=== PATIENT | female | born 1995 | race Caucasian/White ===

== ENCOUNTER → 2017-02-14 | Outpatient (REF) | payer BC | LOC: M LAB REF 16:23 | PROVIDERS: ATTEND Surgery | DX: N39.0 Urinary tract infection, site not specified (principal) ==

== ENCOUNTER → 2017-07-16 | Outpatient (CLI) | payer BC ==
[2017-07-16 20:57] LABS: ALBUMIN 3.6 GM/DL (3.2-5.2); ALBUMIN/GLOBULIN RATIO 0.97 (1.00-1.93); ALKALINE PHOSPHATASE 50 U/L (45-117); ALT/SGPT 17 U/L (12-78); BILIRUBIN,DIRECT < 0.1 MG/DL (0.0-0.2); BILIRUBIN,TOTAL 0.3 MG/DL (0.2-1.0); TOTAL PROTEIN 7.3 GM/DL (6.4-8.2)
[2017-07-17 08:43] LABS: AST/SGOT 14 U/L (15-37)
== END ==
LOC: M SMT 14:20
PROVIDERS: ATTEND Advanced Practice Midwife
DX: Z34.82 Encounter for supervision of other normal pregnancy, second trimester (principal)

== ENCOUNTER → 2017-07-30 | Outpatient (CLI) | payer BC ==
--- NOTE | 2017-07-31 04:45 | REP ---
Clinical: Anatomical evaluation. Comparison: None . Findings: Examination demonstrates a single live intrauterine in cephalic presentation. motion is identified by technologist. Placenta is noted posteriorly and grade zero without evidence for placenta previa or abruption. Amniotic fluid volume is normal. Cervix measures 3.6 cm in length and appears closed. Nuchal cord appreciated. Gestational age by current measurements 18 weeks 3 days with LUIS 12/28/2017 . FHR equals 139 beats per minute. Estimated weight 261 grams ( 61st percentile). Anatomical assessment demonstrates normal structures including cranium, facial features, lungs, four-chamber heart/ventricular outflow tracts, diaphragm, stomach, cord insertion/three-vessel cord, kidneys/bladder, spine, and extremities. Limited evaluation of the facial features noted along with small bilateral choroid plexus cysts. Impression: Single live intrauterine in cephalic presentation. Anatomical limitations and small cord plexus cysts warrant reevaluation and follow-up. Otherwise complete normal examination. Nuchal cord noted. Signed by Fox Dominique MD 07/31/2017 04:37 A
== END ==
LOC: M SMT 09:00
PROVIDERS: ATTEND Advanced Practice Midwife
DX: Z36.2 Encounter for other antenatal screening follow-up (principal)

== ENCOUNTER → 2017-09-20 | Outpatient (CLI) | payer BC ==
[2017-09-20 18:40] LABS: MEAN CORPUSCULAR HEMOGLOBIN 32.1 pg (27.0-33.0); MEAN CORPUSCULAR HGB CONC 32.8 g/dl (32.0-36.5); MEAN CORPUSCULAR VOLUME 97.7 fl (80.0-96.0); PLATELET COUNT, AUTOMATED 257 10^3/uL (150-450); RED CELL DISTRIBUTION WIDTH 12.7 % (11.5-14.5); WHITE BLOOD COUNT 12.9 10^3/uL (4.0-10.0)
== END ==
LOC: M SMT 13:02
PROVIDERS: ATTEND Advanced Practice Midwife
DX: Z36.89 Encounter for other specified antenatal screening (principal); Z3A.00 Weeks of gestation of pregnancy not specified

== ENCOUNTER → 2017-12-05 | Outpatient (REF) | payer BC | LOC: M LAB REF 12:47 | DX: Z34.83 Encounter for supervision of other normal pregnancy, third trimester (principal) | CPT/HCPCS: 87186 ==

== ENCOUNTER 2018-01-02 16:36 | Inpatient (IN) | payer BC ==
[2018-01-02] MEDS: miSOPROStol 50 MCG 1/2 TAB (S0191) PO (17:52)
[2018-01-02 18:01] LABS: HEMATOCRIT 33.9 % (36.0-47.0); MEAN CORPUSCULAR HEMOGLOBIN 28.4 pg (27.0-33.0); MEAN CORPUSCULAR HGB CONC 32.4 g/dl (32.0-36.5); MEAN CORPUSCULAR VOLUME 87.4 fl (80.0-96.0); PLATELET COUNT, AUTOMATED 249 10^3/uL (150-450); RED BLOOD COUNT 3.88 10^6/uL (4.00-5.40); RED CELL DISTRIBUTION WIDTH 13.6 % (11.5-14.5); WHITE BLOOD COUNT 12.4 10^3/uL (4.0-10.0)
[2018-01-02] MEDS: LR 1,000 ML IV (22:04)
[2018-01-02] MEDS: OXYTOCIN DRIP 30 UNITS in APPROPRIATE DILUENT 1 EA IV (22:05)
[2018-01-02] MEDS: PENICILLIN G POTASSIUM IV 5 MU in D5W MINI-BAG PLUS 100 ML IV (22:05)
[2018-01-03] MEDS: PENICILLIN G POTASSIUM IV 2.5 MU in APPROPRIATE DILUENT 1 EA IV (02:42)
[2018-01-03] MEDS: PROMETHAZINE INJ 25 MG/ML VIAL (J2550) IV (03:50)
[2018-01-03] MEDS: OXYTOCIN DRIP 30 UNITS in APPROPRIATE DILUENT 1 EA IV (06:41)
[2018-01-03] MEDS: LIDOCAINE 1% MDV 20ML VIAL INFIL (06:45)
[2018-01-03] MEDS ORDERED: DIBUCAINE 1% OINTMENT 30GM TOP (06:45)
[2018-01-03] MEDS ORDERED: ANUSOL HC CREAM 30GM TOP (06:45)
[2018-01-03] MEDS ORDERED: METHYLERGONOVINE MALEATE 0.2 MG TAB PO (06:45)
[2018-01-03] MEDS ORDERED: DOCUSATE SODIUM 100 MG CAP PO (06:45)
[2018-01-03] MEDS: IBUPROFEN 800 MG TAB PO ×2 (08:38→16:53)
[2018-01-03] MEDS: PRENATAL VITAMINS CHEWABLE TABLET PO (09:00)
[2018-01-03 09:22] LABS: HBSAG L&D NEGATIVE (NEGATIVE)
[2018-01-03] MEDS: ACETAMINOPHEN 500 MG TAB PO ×2 (13:29→20:15)
[2018-01-04] MEDS: RHOGAM 300 MCG (1500 IU) INJ (J2790) IM (06:55)
[2018-01-04] MEDS: MEASLES,MUMPS,RUBELLA VACCINE INJ (MMR-II) (90707) SC (07:03)
[2018-01-04] MEDS: PRENATAL VITAMINS CHEWABLE TABLET PO (07:35)
[2018-01-04] MEDS: IBUPROFEN 800 MG TAB PO ×2 (08:21→19:30)
[2018-01-04] MEDS: ACETAMINOPHEN 500 MG TAB PO (14:04)
== END 2018-01-05 11:30 | disposition home or self-care (01) | DRG 541 ==
LOC: M LDI 16:36 → M OBS 01-03 09:44
PROVIDERS: Advanced Practice Midwife
PROC: 3E0DXGC Introduction of Other Therapeutic Substance into Mouth and Pharynx, External Approach (ICD-10-PCS; 2018-01-02)
PROC: 10E0XZZ Delivery of Products of Conception, External Approach (ICD-10-PCS; principal; 2018-01-03)
PROC: 10D17Z9 Manual Extraction of Products of Conception, Retained, Via Natural or Artificial Opening (ICD-10-PCS; 2018-01-03)
PROC: 0HQ9XZZ Repair Perineum Skin, External Approach (ICD-10-PCS; 2018-01-03)
DX: O48.0 Post-term pregnancy (principal); O70.0 First degree perineal laceration during delivery; Z37.0 Single live birth; Z3A.40 40 weeks gestation of pregnancy; O73.1 Retained portions of placenta and membranes, without hemorrhage

== ENCOUNTER → 2019-05-13 | Outpatient (REF) | payer BC ==
[~2019-05-13] MED LIST: IBUP-1114 PO; MAPA500T2 PO; PRENTAB9 PO; TUMS500C PO
== END ==
LOC: M LAB REF 11:53
PROVIDERS: ATTEND Advanced Practice Midwife
DX: Z12.4 Encounter for screening for malignant neoplasm of cervix (principal)

== ENCOUNTER → 2019-05-13 | Outpatient (CLI) | payer BC | LOC: M SMT 09:51 | PROVIDERS: ATTEND Advanced Practice Midwife | DX: R63.4 Abnormal weight loss (principal) ==

== ENCOUNTER 2019-07-07 09:07 | Emergency (ER) | payer BC ==
[~2019-07-07] VITALS: Ht 170.2 cm; Wt 63.7 kg
--- NOTE | 2019-07-07 10:26 | REP ---
First trimester obstetric sonography: History: Vaginal bleeding. 6 weeks 2 days by dates. Findings: Transabdominal and transvaginal scanning are performed. Uterine dimensions are 8.8 x 4.3 x 5.3 cm. Uterine size is felt to be normal. The endometrium is empty. No intrauterine gestation is seen. Endometrial echo is 0.9 cm in thickness. Right ovary measures 3.1 x 2.8 x 3.8 cm. There is a 1.5 cm hyperechoic complex area in the right ovary. Doppler flow is normal and the right ovary with resistive index of 0.42. The overall dimensions of the left ovary are 3.8 x 2.1 x 2.1 cm. There is a cyst in the left ovary measuring 1.7 cm in greatest diameter. Doppler flow was observed in the left ovary with resistive index 0.53. There is a sliver of cul-de-sac fluid. Impression: No morphologic abnormality noted. Normal-sized empty uterus. A sliver of fluid in the cul-de-sac. Nonspecific sonographic findings. Electronically Signed by Nader Garcia MD 07/07/2019 10:31 A
[2019-07-07 10:44] LABS: BASO # 0.1 10^3/uL (0.0-0.2); BASO % 0.7 % (0.0-1.0); EOS # 0.1 10^3/uL (0.0-0.5); EOS % 0.8 % (0.0-3.0); HEMATOCRIT 38.1 % (36.0-47.0); HEMOGLOBIN 12.8 g/dl (12.0-15.5); LYMPH # 1.4 10^3/uL (1.5-5.0); LYMPH % 14.6 % (24.0-44.0); MEAN CORPUSCULAR HEMOGLOBIN 32.8 pg (27.0-33.0); MEAN CORPUSCULAR HGB CONC 33.6 g/dl (32.0-36.5); MEAN CORPUSCULAR VOLUME 97.7 fl (80.0-96.0); MONO # 0.7 10^3/uL (0.0-0.8); MONO % 7.4 % (0.0-5.0); NEUTROPHILS # 7.5 10^3/uL (1.5-8.5); NEUTROPHILS % 76.1 % (36.0-66.0); PLATELET COUNT, AUTOMATED 243 10^3/uL (150-450); WHITE BLOOD COUNT 9.8 10^3/uL (4.0-10.0)
[2019-07-07 11:58] VITALS: BP 129/83
[2019-07-07 12:09] LABS: CHLAMYDIA DNA AMPLIFICATION NEGATIVE (NEGATIVE); GC DNA AMPLIFICATION NEGATIVE (NEGATIVE)
== END 2019-07-07 12:08 | disposition home or self-care (01) ==
LOC: M ED 09:07
DX: O26.851 Spotting complicating pregnancy, first trimester (principal); R10.2 Pelvic and perineal pain; Z3A.01 Less than 8 weeks gestation of pregnancy; Z88.2 Allergy status to sulfonamides; Z88.8 Allergy status to other drugs, medicaments and biological substances

== ENCOUNTER → 2019-07-09 | Outpatient (CLI) | payer BC | LOC: M SMT 09:10 | PROVIDERS: ATTEND Physician Assistant | DX: O26.851 Spotting complicating pregnancy, first trimester (principal) ==

== ENCOUNTER → 2019-07-15 | Outpatient (CLI) | payer BC | LOC: M SMT 12:03 | PROVIDERS: ATTEND Advanced Practice Midwife | DX: O03.4 Incomplete spontaneous abortion without complication (principal) ==

== ENCOUNTER → 2019-08-19 | Outpatient (CLI) | payer BC ==
[2019-08-19 17:55] LABS: BASO # 0.1 10^3/uL (0.0-0.2); BASO % 0.6 % (0.0-1.0); EOS # 0.2 10^3/uL (0.0-0.5); EOS % 1.6 % (0.0-3.0); HEMATOCRIT 38.2 % (36.0-47.0); HEMOGLOBIN 12.3 g/dl (12.0-15.5); LYMPH # 1.8 10^3/uL (1.5-5.0); LYMPH % 17.4 % (24.0-44.0); MEAN CORPUSCULAR HEMOGLOBIN 31.6 pg (27.0-33.0); MEAN CORPUSCULAR HGB CONC 32.2 g/dl (32.0-36.5); MEAN CORPUSCULAR VOLUME 98.2 fl (80.0-96.0); MONO # 0.8 10^3/uL (0.0-0.8); MONO % 8.1 % (0.0-5.0); NEUTROPHILS # 7.5 10^3/uL (1.5-8.5); NEUTROPHILS % 71.7 % (36.0-66.0); PLATELET COUNT, AUTOMATED 252 10^3/uL (150-450); RED BLOOD COUNT 3.89 10^6/uL (4.00-5.40); WHITE BLOOD COUNT 10.4 10^3/uL (4.0-10.0)
[2019-08-20 09:24] LABS: HEPATITIS C VIRUS ABY INDEX 0.1 INDEX (<0.8); HIV 1&2 SCREEN CENTAUR NEGATIVE (NEGATIVE); RUBELLA IgG QUALITATIVE IMMUNE (IMMUNE)
== END ==
LOC: M SMT 11:42
PROVIDERS: ATTEND Advanced Practice Midwife
DX: Z34.81 Encounter for supervision of other normal pregnancy, first trimester (principal); Z3A.00 Weeks of gestation of pregnancy not specified

== ENCOUNTER → 2019-09-02 | Outpatient (REF) | payer BC | LOC: M LAB REF 13:03 | PROVIDERS: ATTEND Advanced Practice Midwife | DX: Z34.81 Encounter for supervision of other normal pregnancy, first trimester (principal); Z3A.00 Weeks of gestation of pregnancy not specified ==

== ENCOUNTER → 2019-11-06 | Outpatient (REF) | payer BC ==
[2019-11-06 15:48] LABS: CHLAMYDIA DNA AMPLIFICATION NEGATIVE (NEGATIVE); GC DNA AMPLIFICATION NEGATIVE (NEGATIVE)
== END ==
LOC: M SFHCWAGY 12:59
PROVIDERS: ATTEND Advanced Practice Midwife
DX: Z34.82 Encounter for supervision of other normal pregnancy, second trimester (principal)

== ENCOUNTER → 2019-11-13 | Outpatient (CLI) | payer BC ==
--- NOTE | 2019-11-14 04:13 | REP ---
Clinical: Anatomical evaluation. Comparison: None . Findings: Examination demonstrates a single live intrauterine in variable presentation. motion is identified by technologist. Placenta is noted anterior and grade zero without evidence for placenta previa or abruption. Amniotic fluid volume is normal. Cervix measures 3.3 cm in length and appears closed. Nuchal cord cannot be excluded Gestational age by LMP 18 weeks 6 days with LUSI 04/09/2020 . Gestational age by current measurements 19 weeks 0 day with LUIS 04/08/2020 . FHR equals 141 beats per minute. BPD 4.3 cm 18 weeks 6 days HC 15.6 cm 18 weeks 4 days AC 13.8 cm 19 weeks 2 days FL 2.9 cm 18 weeks 5 days HL 2.9 cm 19 weeks 2 days HC/AC ratio 1.13 Estimated weight 267 grams ( 49th percentile). Anatomical assessment demonstrates normal structures including cranium, choroid plexus, cavum, cerebellum/posterior fossa, facial features, lungs, four-chamber heart/ventricular outflow tracts, diaphragm, stomach, cord insertion/three-vessel cord, kidneys/bladder, spine, and extremities. Impression: 1. Single live intrauterine in variable presentation demonstrating appropriate interval growth. No gross abnormalities are identified. 2. Nuchal cord cannot be excluded. Electronically Signed by Fox Dominique MD 11/14/2019 04:04 A
== END ==
LOC: M RAD 08:05
PROVIDERS: ATTEND Advanced Practice Midwife
DX: Z34.82 Encounter for supervision of other normal pregnancy, second trimester (principal); Z3A.19 19 weeks gestation of pregnancy

== ENCOUNTER → 2020-02-10 | Outpatient (REF) | payer BC ==
[2020-02-10 17:28] LABS: HEMATOCRIT 33.8 % (36.0-47.0); HEMOGLOBIN 11.1 g/dl (12.0-15.5); MEAN CORPUSCULAR HEMOGLOBIN 31.7 pg (27.0-33.0); MEAN CORPUSCULAR HGB CONC 32.8 g/dl (32.0-36.5); MEAN CORPUSCULAR VOLUME 96.6 fl (80.0-96.0); PLATELET COUNT, AUTOMATED 207 10^3/uL (150-450); WHITE BLOOD COUNT 10.2 10^3/uL (4.0-10.0)
== END ==
LOC: M PLALAB 13:36
PROVIDERS: ATTEND Advanced Practice Midwife
DX: Z34.82 Encounter for supervision of other normal pregnancy, second trimester (principal)

== ENCOUNTER → 2020-03-10 | Outpatient (REF) | payer BC | LOC: M SFHCWAGY 17:26 | PROVIDERS: ATTEND Advanced Practice Midwife | DX: Z34.93 Encounter for supervision of normal pregnancy, unspecified, third trimester (principal) ==

== ENCOUNTER → 2020-03-17 | Outpatient (REF) | payer BC | LOC: M PLALAB 11:36 | PROVIDERS: ATTEND Advanced Practice Midwife | DX: Z34.93 Encounter for supervision of normal pregnancy, unspecified, third trimester (principal) ==

== ENCOUNTER 2020-04-20 07:32 | Inpatient (IN) | payer BC ==
[~2020-04-20] VITALS: Ht 170.2 cm; Wt 74.6 kg
[2020-04-20] VITALS (27 sets, daily range): BP systolic 106–136; BP diastolic 53–82
[2020-04-20] MEDS ORDERED: PRIL20TA2 PO (08:00)
[2020-04-20] MEDS ORDERED: miSOPROStol 50 MCG 1/2 TAB (S0191) PO SCH (08:30)
[2020-04-20 09:24] LABS: HEMATOCRIT 34.8 % (36.0-47.0); HEMOGLOBIN 11.2 g/dl (12.0-15.5); MEAN CORPUSCULAR HEMOGLOBIN 28.7 pg (27.0-33.0); MEAN CORPUSCULAR HGB CONC 32.2 g/dl (32.0-36.5); MEAN CORPUSCULAR VOLUME 89.2 fl (80.0-96.0); PLATELET COUNT, AUTOMATED 232 10^3/uL (150-450); WHITE BLOOD COUNT 9.2 10^3/uL (4.0-10.0)
[2020-04-20] MEDS ORDERED: LR 1,000 ML IV SCH (12:44)
[2020-04-20] MEDS ORDERED: OXYTOCIN DRIP 30 UNITS in IV 1 EA IV SCH ×2 (12:45→23:12)
[2020-04-20] MEDS: OMEPRAZOLE 20 MG CAP PO SCH (15:29)
--- NOTE | 2020-04-20 18:50 | HPE ---
DATE OF ADMISSION: 04/20/2020 Marcia is a 24-year-old 3, para 1-0-1-1 at 41-4/7 weeks gestation, EDC of 04/09/2020 based on last menstrual period and confirmed by first trimester ultrasound, presents to labor and delivery today for induction of labor due to post-term . She denies any painful, regular contractions, vaginal bleeding or leakage of fluid. The fetus has been active. care was initiated at [facility] in the first trimester. course uncomplicated. OBSTETRICAL HISTORY: 1. 12/2017, 41 weeks gestation, 7 pounds 11 ounces female, spontaneous vaginal delivery following induction of labor. 2. June 2019, spontaneous miscarriage. OBSTETRIC LABORATORIES: O+, antibody screen negative, syphilis negative, gonorrhea and chlamydia negative. Hepatitis B surface antigen negative. Hepatitis C antibody nonreactive. HIV nonreactive, rubella immune. Gestational diabetic screening normal at 95. GBS negative and urine culture no growth. PAST MEDICAL HISTORY: Negative. SURGERIES: None. FAMILY HISTORY: Prader-Willi syndrome. SOCIAL HISTORY: The patient is . Her is at bedside and supportive. She is a nonsmoker. Denies alcohol and drug use. No history of sexually transmitted infections and denies history of abuse; physical, sexual and emotional. ALLERGIES: ZOFRAN, which causes anaphylaxis. BACTRIM, vomiting. MEDICATIONS: - vitamin - omeprazole 20 mg daily OBJECTIVE: Upon arrival, temperature 97.9, pulse 88, respirations 16, blood pressure is 112/59. She is alert and oriented times three, smiling and talkative. No distress. heart rate 140 with moderate variability, positive accelerations, negative decelerations. No pattern of regular contractions. Her abdomen is gravid, cephalic presentation. Estimated weight 7-1/2 pounds. Sterile vaginal exam: 2 cm dilated 50% effaced, -2 station, posterior and soft. No show with the exam. ASSESSMENT: Intrauterine at 41-4/7 weeks. heart rate category 1. PLAN: Admit the patient to labor and delivery. One dose of misoprostol for cervical ripening. Routine labs. Out of bed ad shon. Regular diet at this time. Routine laboratories. Likely will start Pitocin for labor induction and will consider assisted rupture of membranes for labor augmentation once patient is uncomfortable. The patient plans on coping with her labor pathologically. Risks, benefits and alternatives have been reviewed. The patient and her 's questions have been answered. She has been verbally consented for emergency surgery and blood products if they are necessary. I do anticipate cervical ripening, labor and a spontaneous vaginal delivery.
[2020-04-20] MEDS ORDERED: IBUPROFEN 600MG TAB PO PRN (23:15)
[2020-04-20] MEDS ORDERED: DIBUCAINE 1% OINTMENT 30GM TOP PRN (23:15)
[2020-04-20] MEDS ORDERED: MEASLES,MUMPS,RUBELLA VACCINE INJ (MMR-II) (90707) SC SCH (23:15)
[2020-04-20] MEDS ORDERED: DOCUSATE SODIUM 100 MG CAP PO PRN (23:15)
[2020-04-20] MEDS ORDERED: RHOGAM 300 MCG (1500 IU) INJ (J2790) IM SCH (23:15)
[2020-04-20] MEDS ORDERED: ACETAMINOPHEN TAB 650MG DOSE (2X325MG) PO PRN (23:15)
[2020-04-20] MEDS ORDERED: METHYLERGONOVINE MALEATE 0.2 MG TAB PO PRN (23:15)
[2020-04-21] VITALS: BP 113/53
[2020-04-21 02:02] VITALS: BP 113/72
[2020-04-21 05:28] VITALS: BP 102/59
[2020-04-21] MEDS: IBUPROFEN 800 MG TAB PO PRN ×2 (06:55→18:04)
[2020-04-21] MEDS: OMEPRAZOLE 20 MG CAP PO SCH (08:07)
[2020-04-21] MEDS: PRENATAL VITAMINS CHEWABLE TABLET PO SCH (08:07)
--- NOTE | 2020-04-21 09:26 | DN ---
DATE OF DELIVERY: 04/20/2020 Fay is a 24-year-old, 3, para 2-0-1-2 now, who was admitted to labor and delivery for induction of labor due to post-term . One dose of misoprostol and IV Pitocin was used and labor did ensue. She coped with her labor physiologically. She reached complete dilation at 2238. She pushed to a normal spontaneous vaginal delivery of a live male in left occiput anterior (TERESITA) position with restitution to right occiput transverse (ROT) position at 2246. There was a nuchal cord x1, loose, reduced manually at the time of delivery. The male shoulders delivered spontaneously and corpus immediately followed. He was placed on the maternal abdomen crying and active. The cord was clamped times two once pulsations ceased and cut by the father of the baby under my direction. Spontaneous placenta by Styles mechanism with three-vessel cord was at 2253. Uterine hemostasis achieved with IV Pitocin rapid infusion and uterine fundal massage. Estimated blood loss 200 mL. Perineum and vagina inspected and noted to be intact. [place] male weighed 8 pounds 8 ounces, 3850 grams, Apgars 9 and 9. The family have named their son, Osvaldo Barry. Mom is going to breastfeed her son. At the close of delivery, lap counts, needle counts and instrument counts were correct and verified.
[2020-04-21] MEDS: ACETAMINOPHEN 500 MG TAB PO PRN ×2 (12:36→23:49)
[2020-04-21 18:00] VITALS: BP 134/57
[2020-04-22 05:40] VITALS: BP 115/55
[2020-04-22] MEDS: PRENATAL VITAMINS CHEWABLE TABLET PO SCH (07:17)
[2020-04-22] MEDS: OMEPRAZOLE 20 MG CAP PO SCH (07:17)
== END 2020-04-22 11:20 | disposition home or self-care (01) | DRG 560 ==
LOC: M LDI 07:32 → M OBS 04-21 01:58
PROVIDERS: ADMIT Advanced Practice Midwife; ATTEND Advanced Practice Midwife
PROC: 10E0XZZ Delivery of Products of Conception, External Approach (ICD-10-PCS; principal; 2020-04-20)
PROC: 3E033VJ Introduction of Other Hormone into Peripheral Vein, Percutaneous Approach (ICD-10-PCS; 2020-04-20)
PROC: 3E0DXGC Introduction of Other Therapeutic Substance into Mouth and Pharynx, External Approach (ICD-10-PCS; 2020-04-20)
DX: O48.0 Post-term pregnancy (principal); Z37.0 Single live birth; Z3A.41 41 weeks gestation of pregnancy; O69.81X0 Labor and delivery complicated by cord around neck, without compression, not applicable or unspecified

== ENCOUNTER 2021-01-13 12:53 | Emergency (ER) | payer BC ==
[~2021-01-13] VITALS: Ht 170.2 cm; Wt 59.1 kg
[~2021-01-13 12:53] MED LIST changes: +PRIL20TA2 PO
--- NOTE | 2021-01-13 13:39 | REP ---
INDICATION: speech difficulty - 9 weeks . COMPARISON: None. TECHNIQUE: CT BRAIN PERFORMED IN THE AXIAL PLANE. CORONAL RECONSTRUCTION IMAGES ARE PERFORMED. FINDINGS: THE VENTRICLES ARE NORMAL IN SIZE AND POSITION. THERE IS NO MIDLINE SHIFT OR MASS EFFECT. THE BASAL GANGLIA ARE SYMMETRIC AND NORMAL. JOHNSON-WHITE DIFFERENTIATION IS WELL MAINTAINED. THERE IS NO ACUTE INTRACRANIAL HEMORRHAGE OR EXTRA-AXIAL FLUID COLLECTION. POSTERIOR FOSSA IS UNREMARKABLE. THE BASAL CISTERNS ARE INTACT. BONE WINDOW EXAMINATION IS UNREMARKABLE. VISUALIZED MASTOID AIR CELLS AND PARANASAL SINUSES ARE CLEAR. IMPRESSION: NEGATIVE NONCONTRAST CT BRAIN. <Electronically signed by Neftali Colvin > 01/13/21 [id number]
[2021-01-13 13:43] LABS: BASO # 0.1 10^3/uL (0.0-0.2); BASO % 0.7 % (0.0-1.0); EOS # 0.2 10^3/uL (0.0-0.5); EOS % 1.5 % (0.0-3.0); HEMATOCRIT 36.7 % (36.0-47.0); LYMPH # 1.5 10^3/uL (1.5-5.0); LYMPH % 14.8 % (24.0-44.0); MEAN CORPUSCULAR HGB CONC 32.7 g/dl (32.0-36.5); MEAN CORPUSCULAR VOLUME 97.9 fl (80.0-96.0); MONO # 0.9 10^3/uL (0.0-0.8); MONO % 8.2 % (2.0-8.0); NEUTROPHILS # 7.7 10^3/uL (1.5-8.5); NEUTROPHILS % 74.2 % (36.0-66.0); PLATELET COUNT, AUTOMATED 238 10^3/uL (150-450); RED BLOOD COUNT 3.75 10^6/uL (4.00-5.40); WHITE BLOOD COUNT 10.4 10^3/uL (4.0-10.0)
[2021-01-13 14:09] LABS: CK-MB VALUE MASS < 1.0 NG/ML (<3.6); CPK CREATINE PHOSPHOKINASE 84 U/L (26-192); MB/CK RELATIVE INDEX 1.19 (< OR =4); TROPONIN I < 0.02 NG/ML (< 0.10)
--- NOTE | 2021-01-13 15:02 | REPVR ---
PROCEDURE INFORMATION: Exam: MR Angiogram Head Without Contrast, Arteries Exam date and time: 01/13/2021 2:56 PM Age: 25 years old Clinical indication: Speech disturbance; Patient HX: PT 9wks , onset aphasia, PT states facial numbness bilateral hand numbness TECHNIQUE: Imaging protocol: MR angiogram head without contrast. Exam focused on the arteries. 3D rendering (Not supervised by radiologist): MIP and/or 3D reconstructed images were created by the technologist. COMPARISON: CT Head without contrast 01/13/2021 1:23 PM FINDINGS: ANTERIOR CIRCULATION: Right internal carotid artery: Intracranial segment is patent with no significant stenosis. No aneurysm. Right middle cerebral artery: No occlusion or significant stenosis. No aneurysm. Right anterior cerebral artery: No occlusion or significant stenosis. No aneurysm. Left internal carotid artery: Intracranial segment is patent with no significant stenosis. No aneurysm. Left middle cerebral artery: No occlusion or significant stenosis. No aneurysm. Left anterior cerebral artery: No occlusion or significant stenosis. No aneurysm. POSTERIOR CIRCULATION: Right vertebral artery: No occlusion or significant stenosis. No aneurysm. Left vertebral artery: No occlusion or significant stenosis. No aneurysm. Basilar artery: No occlusion or significant stenosis. No aneurysm. Right posterior cerebral artery: No occlusion or significant stenosis. No aneurysm. Left posterior cerebral artery: No occlusion or significant stenosis. No aneurysm. IMPRESSION: No stenosis.No occlusion. No aneurysm. Electronically signed by: Johnnie Rizvi On 01/13/2021 15:02:16 PM
--- NOTE | 2021-01-13 15:04 | REPVR ---
PROCEDURE INFORMATION: Exam: MR Head Without Contrast Exam date and time: 01/13/2021 2:56 PM Age: 25 years old Clinical indication: Speech disturbance; Aphasia; Patient HX: 9wks , apashia, PT states facial numbness, monica hand weakness TECHNIQUE: Imaging protocol: MR of the head without contrast. COMPARISON: CT Head without contrast 01/13/2021 1:23 PM FINDINGS: Brain: Examination of the brain demonstrates normal morphology and signal intensity.No acute infarction, masses, midline shift or acute hemorrhage is seen. No acute intracranial abnormality is identified.There is no abnormal diffusion weighted signal intensity to suggest an acute ischemic event.The cortical finnegan / white matter interfaces are preserved throughout the brain.Intracranial flow voids are well maintained. Cerebral ventricles: The ventricular system is not dilated and is appropriate for the patient's age. Bones/joints: Unremarkable. Paranasal sinuses: Normal as visualized. No acute sinusitis. Mastoid air cells: Normal as visualized. No mastoid effusion. Orbital cavity: Unremarkable. Soft tissues: Unremarkable. IMPRESSION: 1. No acute infarction, masses or hemorrhage is seen. No acute intracranial abnormality is identified. 2. There has been no adverse interval change since the previous study. Electronically signed by: Johnnie Rizvi On 01/13/2021 15:04:57 PM
[2021-01-13] MEDS ORDERED: diphenhydrAMINE 50MG/ML VIAL (J1200) IV STA (15:12)
[2021-01-13 15:14] LABS: RSV AMPLIFICATION NEGATIVE (NEGATIVE)
[2021-01-13] MEDS ORDERED: NS 1,000 ML IV ONE (15:15)
[2021-01-13] MEDS ORDERED: METOCLOPRAMIDE INJ 10MG/2ML VIAL (J2765 PER 1) IV ONE (15:15)
[2021-01-13] MEDS ORDERED: PROMETHAZINE INJ 25 MG/ML VIAL (J2550) IV ONE (16:25)
[2021-01-13] MEDS ORDERED: ACETAMINOPHEN TAB 650MG DOSE (2X325MG) PO ONE (17:35)
[2021-01-13 18:10] VITALS: BP 122/60
--- NOTE | 2021-01-14 06:35 | ECGEPIP ---
[facility] - ED Test Date: 2021-01-13 Pat Name: SAUNDRA ROSE Department: Room: - Gender: Female Vp Data: KYARA : 1995 Requested By: Caroline De Paz Order Number: [id number] Reading MD: Berta Patel Measurements Intervals [place] Rate: 79 P: 74 SD: 146 QRS: 88 QRSD: 90 T: 62 QT: 394 QTc: 451 Interpretive Statements Normal sinus rhythm with sinus arrhythmia Nonspecific ST T wave changes No prior ECG for comparison Electronically Signed on 01-14-2021 6:35:02 EDT by Berta Patel
== END 2021-01-13 18:16 | disposition home or self-care (01) ==
LOC: M ED 12:53
DX: O99.351 Diseases of the nervous system complicating pregnancy, first trimester (principal); G43.809 Other migraine, not intractable, without status migrainosus; Z88.2 Allergy status to sulfonamides; Z88.8 Allergy status to other drugs, medicaments and biological substances; Z79.899 Other long term (current) drug therapy
CPT/HCPCS: 70450; 70544; 70551; 80047; 82550; 82553; 84484; 85025; 85730; 87631; 93005; 93041; 94760; 96361; 96374; 96375; 99284; J1200; J2765

== ENCOUNTER → 2021-01-21 | Outpatient (REF) | payer BC ==
[2021-01-21 13:36] LABS: HEMATOCRIT 38.1 % (36.0-47.0); HEMOGLOBIN 12.1 g/dl (12.0-15.5); MEAN CORPUSCULAR HEMOGLOBIN 31.2 pg (27.0-33.0); MEAN CORPUSCULAR HGB CONC 31.8 g/dl (32.0-36.5); MEAN CORPUSCULAR VOLUME 98.2 fl (80.0-96.0); PLATELET COUNT, AUTOMATED 264 10^3/uL (150-450); RED BLOOD COUNT 3.88 10^6/uL (4.00-5.40); WHITE BLOOD COUNT 9.2 10^3/uL (4.0-10.0)
[2021-01-21 14:50] LABS: HEPATITIS C VIRUS ABY INDEX 0.1 INDEX (<0.8); HIV 1&2 SCREEN CENTAUR NEGATIVE (NEGATIVE)
[2021-01-21 17:12] LABS: CHLAMYDIA DNA AMPLIFICATION NEGATIVE (NEGATIVE); GC DNA AMPLIFICATION NEGATIVE (NEGATIVE)
== END ==
LOC: M PLALAB 10:32
PROVIDERS: ATTEND Advanced Practice Midwife
DX: Z34.91 Encounter for supervision of normal pregnancy, unspecified, first trimester (principal)

== ENCOUNTER → 2021-03-28 | Outpatient (CLI) | payer BC ==
--- NOTE | 2021-03-28 11:50 | REP ---
INDICATION: ANATOMY COMPARISON: None. TECHNIQUE: Transabdominal obstetrical ultrasound with color Doppler evaluation. FINDINGS: Examination demonstrates a single live intrauterine in breech presentation. motion is identified by technologist. Placenta is noted anterior and grade 1 without evidence for placenta previa or abruption. Amniotic fluid volume is normal. Cervix measures 5.2 cm in length and appears closed.. Selected gestational age: 18 weeks 4 days with LUIS 08/25/2021. Gestational age by current measurements 18 weeks 2 days with LUIS 08/27/2021. FHR equals 153 beats per minute. Estimated weight 238 grams (36thpercentile). Anatomical assessment demonstrates normal structures including cranium, choroid plexus, cavum, cerebellum/posterior fossa, facial features, lungs, diaphragm, stomach, cord insertion/three-vessel cord, kidneys/bladder, spine, and extremities. IMPRESSION: Single live intrauterine in breech presentation demonstrating appropriate estimated weight. Limited evaluation of the heart/ventricular outflow tracts. Remainder of the anatomical assessment is complete and normal. <Electronically signed by Fox Dominique > 03/28/21 [id number]
== END ==
LOC: M WHC 10:10
PROVIDERS: ATTEND Advanced Practice Midwife
DX: Z34.92 Encounter for supervision of normal pregnancy, unspecified, second trimester (principal); Z3A.18 18 weeks gestation of pregnancy

== ENCOUNTER → 2021-05-03 | Outpatient (CLI) | payer BC ==
--- NOTE | 2021-05-03 11:45 | REP ---
INDICATION: F/U ANATOMY. COMPARISON: 03/28/2021. TECHNIQUE: Real-time sonographic evaluation of the gravid uterus performed. FINDINGS: Estimated gestational age is23 weeks 5 days, EDC 08/25/2021. Today's measurements indicate appropriate growth. Presentation: Cephalic Placenta anterior, grade 1, without evidence of placenta previa. heart rate is recorded at 147 beats per minute. Amniotic fluid is subjectively normal. Closed cervical length is measured at 3.7 cm. Biometry chart: BPD: 54 mm, 22 weeks 3 days, 17th percentile. HC: 213 mm, 23 weeks 3 days, 40th percentile AC: 185 mm, 23 weeks 2 days, 41st percentile Femur length: 41 mm, 23 weeks 2 days, 39th percentile HC to AC ratio: 1.15, normal range 1.03-1.22. Estimated weight: 578g, 23rd percentile. anatomy: Cranium: Grossly normal Lateral Ventricles/Choroid Plexus: Grossly normal Posterior Fossa/Cerebellum: Grossly normal Nose/lips/profile: Grossly normal Four chamber heart: Grossly normal Right ventricular outflow tract: Grossly normal Left ventricular outflow tract: Grossly normal Left-sided stomach: Grossly normal Kidneys: Grossly normal Bladder: Grossly normal Cord Insertion: Grossly normal 3 vessel cord: Grossly normal Spine: Grossly normal IMPRESSION: Viable single intrauterine gestation as above. <Electronically signed by Rafy Figueroa > 05/03/21 [id number]
== END ==
LOC: M WHC 10:05
PROVIDERS: ATTEND Obstetrics & Gynecology
DX: Z34.82 Encounter for supervision of other normal pregnancy, second trimester (principal)

== ENCOUNTER → 2021-05-20 | Outpatient (CLI) | payer OTHER ==
[2021-05-20 17:00] LABS: HEMATOCRIT 34.4 % (36.0-47.0); HEMOGLOBIN 11.4 g/dl (12.0-15.5); MEAN CORPUSCULAR HEMOGLOBIN 32.4 pg (27.0-33.0); MEAN CORPUSCULAR HGB CONC 33.1 g/dl (32.0-36.5); MEAN CORPUSCULAR VOLUME 97.7 fl (80.0-96.0); PLATELET COUNT, AUTOMATED 228 10^3/uL (150-450); RED BLOOD COUNT 3.52 10^6/uL (4.00-5.40)
[2021-05-20 19:19] LABS: GC DNA AMPLIFICATION NEGATIVE (NEGATIVE)
== END ==
LOC: M PLALAB 14:39
PROVIDERS: ATTEND Obstetrics & Gynecology
DX: Z34.92 Encounter for supervision of normal pregnancy, unspecified, second trimester (principal); Z3A.00 Weeks of gestation of pregnancy not specified

== ENCOUNTER → 2021-07-26 | Outpatient (REF) | payer BC, OTHER | LOC: M SFHCWAGY 13:15 | PROVIDERS: ATTEND Advanced Practice Midwife | DX: Z34.93 Encounter for supervision of normal pregnancy, unspecified, third trimester (principal); Z3A.00 Weeks of gestation of pregnancy not specified ==

== ENCOUNTER 2021-08-24 11:20 | Inpatient (IN) | payer BC ==
[2021-08-24] VITALS (15 sets, daily range): BP systolic 96–131; BP diastolic 55–76
[~2021-08-24] VITALS: Ht 170.2 cm; Wt 75.3 kg
[2021-08-24] MEDS ORDERED: PENICILLIN G POTASSIUM IV 5 MU in D5W MINI-BAG PLUS 100 ML IV STA ×2 (11:32→13:29)
[2021-08-24] MEDS ORDERED: OXYTOCIN DRIP 30 UNITS in IV 1 EA IV PRN ×4 (11:35)
[2021-08-24] MEDS ORDERED: METHYLERGONOVINE MALEATE 0.2 MG/ML VIAL (J2210) IM PRN (11:35)
[2021-08-24] MEDS ORDERED: OXYTOCIN INJ 10 UNITS/ML VIAL (J2590) IM PRN (11:35)
[2021-08-24] MEDS ORDERED: LIDOCAINE 1% MDV 20ML VIAL INFIL PRN (11:35)
[2021-08-24] MEDS ORDERED: TRANEXAMIC ACID INJection 1,000 MG in NS 100 ML IV PRN (11:35)
[2021-08-24] MEDS ORDERED: miSOPROStol 50MCG 1/2 TABLET PO SCH (11:35)
[2021-08-24] MEDS ORDERED: LR 1,000 ML IV SCH ×2 (11:35→16:25)
[2021-08-24] MEDS ORDERED: CARBOPROST TROMETHAMINE 250 MCG/ML AMP IM PRN (11:35)
[2021-08-24] MEDS ORDERED: ACET325C5 PO (11:43)
[2021-08-24] MEDS ORDERED: CLAR10CA3 PO (11:43)
[2021-08-24] MEDS ORDERED: HOME MED LIST COMPLETE! XX SCH (11:45)
[2021-08-24 13:26] LABS: HEMATOCRIT 34.9 % (36.0-47.0); HEMOGLOBIN 11.3 g/dl (12.0-15.5); MEAN CORPUSCULAR HEMOGLOBIN 28.8 pg (27.0-33.0); MEAN CORPUSCULAR HGB CONC 32.4 g/dl (32.0-36.5); MEAN CORPUSCULAR VOLUME 88.8 fl (80.0-96.0); PLATELET COUNT, AUTOMATED 257 10^3/uL (150-450); RED BLOOD COUNT 3.93 10^6/uL (4.00-5.40); WHITE BLOOD COUNT 10.6 10^3/uL (4.0-10.0)
--- NOTE | 2021-08-24 14:42 | HPE ---
HISTORY AND PHYSICAL DATE OF ADMISSION: 08/24/2021 SUBJECTIVE: Marcia is a 25-year-old 4, para 2-0-1-2 at 39 and 6/7 weeks gestation with EDC of 08/25/2021 by last menstrual period and first trimester ultrasound. She presents to Labor and Delivery today for induction of labor due to social reasons. She denies any painful regular contractions, vaginal bleeding, and leakage of fluid. The fetus has been active. Her care was initiated in the first trimester at [facility]. The course has been uncomplicated. OBSTETRIC HISTORY: 1. December 2017, 40 weeks gestation, 7 pound 11 ounce female, vaginal delivery following an induction, no complications. 2. June 2019, spontaneous miscarriage. 3. April 2020, 41 and 2/7 weeks, 8 pound 8 ounce male, vaginal delivery following induction of labor. OBSTETRIC LABORATORY: O positive. Antibody screen negative. Gonorrhea and chlamydia negative. Syphilis negative. Hepatitis B negative. Hepatitis C negative. HIV negative. Gestational diabetic screening normal at 122. Urine culture with normal shravan lactobacillus. GBS is positive. PAST MEDICAL HISTORY: 1. Migraine headaches. 2. Childhood varicella. SURGERIES: None. FAMILY HISTORY: Predelivery syndrome. SOCIAL HISTORY: The patient is . Her is at the bedside. She is a nonsmoker, denies alcohol and drug use. No history of sexually transmitted infections. She denies history of abuse, physical, sexual, and emotional. ALLERGIES: 1. ZOFRAN, which causes swelling and itchy and throat. 2. BACTRIM, which causes vomiting. CURRENT MEDICATIONS: vitamin. OBJECTIVE: Temperature 99.4. Pulse 86. Respirations 18. Blood pressure 129/76. She is alert and oriented x3. heart rate is 150 with moderate variability, positive accelerations, negative decelerations. There is no pattern of regular contractions. Her abdomen is gravid, cephalic presentation, estimated weight of 7.5 pounds. Sterile vaginal exam: 2 cm dilated, 50% effaced, -2 stations. ASSESSMENT: 1. Intrauterine at 39 and 6/7 weeks. 2. heart rate category 1. PLAN: 1. Admit the patient to labor and delivery. 2. Routine laboratories. 3. Out of bed ad shon. 4. Saline lock start. 5. IV antibiotics for GBS prophylaxis. 6. Regular diet at this time. 7. I do plan to administer 1-2 doses of Misoprostol for cervical ripening and then start IV Pitocin. 8. The patient normally yue with her labor physiologically. 9. She has been verbally consented for emergency surgery and blood products if they are necessary. Risks, benefits, and alternatives were reviewed. 10. I do anticipate cervical ripening, labor, and a vaginal delivery.
[2021-08-24] MEDS ORDERED: PENICILLIN G POTASSIUM IV 2.5 MU in IV 1 EA IV SCH (15:35)
[2021-08-24] MEDS ORDERED: OXYTOCIN DRIP 30 UNITS in IV 1 EA IV SCH (16:25)
[2021-08-24] MEDS: PENICILLIN G POTASSIUM IV 2.5 MU in IV 1 EA IV SCH ×2 (17:56→22:04)
[2021-08-24] MEDS ORDERED: **PENDING PCN ENTRY XX SCH (21:00)
[2021-08-24] MEDS ORDERED: RHOGAM 300 MCG (1500 IU) INJ (J2790) IM SCH (23:30)
[2021-08-24] MEDS ORDERED: DIBUCAINE 1% OINTMENT 30GM TOP PRN (23:30)
[2021-08-24] MEDS ORDERED: MEASLES,MUMPS,RUBELLA VACCINE INJ (MMR-II) (90707) SC SCH (23:30)
[2021-08-24] MEDS ORDERED: IBUPROFEN 600MG TAB PO PRN (23:30)
[2021-08-24] MEDS ORDERED: DOCUSATE SODIUM 100MG CAPSULE PO PRN (23:30)
[2021-08-24] MEDS ORDERED: METHYLERGONOVINE MALEATE 0.2 MG TAB PO PRN (23:30)
[2021-08-24] MEDS ORDERED: ACETAMINOPHEN TAB 650MG DOSE (2X325MG) PO PRN (23:30)
[2021-08-25 00:04] VITALS: BP 107/57
[2021-08-25 01:00] VITALS: BP 114/68
[2021-08-25] MEDS: IBUPROFEN 800 MG TAB PO PRN ×3 (01:20→19:52)
[2021-08-25] MEDS: ACETAMINOPHEN 500 MG TAB PO PRN ×2 (05:00→16:22)
[2021-08-25 06:00] VITALS: BP 129/60
--- NOTE | 2021-08-25 06:42 | DN ---
DELIVERY NOTE DATE OF DELIVERY: 08/24/2021 TIME OF : GENDER: APGARS: LACERATIONS: ANESTHESIA: ESTIMATED BLOOD LOSS: COUNTS: DESCRIPTION OF DELIVERY: Fay is a 25-year-old 4 para 3-0-1-3 who was admitted to labor and delivery for induction of labor. One dose of misoprostol was used and then IV Pitocin, and labor did ensue. She coped with her labor physiologically. She reached full dilation at 2251. She pushed to a normal spontaneous vaginal delivery of a live female infant in BENOIT position with restitution to ROT position at 2259. There was no nuchal cord. The shoulders delivered with gentle downward traction and the corpus immediately followed. The female was placed on the maternal abdomen crying and active. The cord was clamped times two once pulsations ceased and cut by the father of the baby under my direction. Spontaneous expulsion of an intact placenta with three-vessel cord by Kothari mechanism was at 2308. Perineum and vagina were inspected and noted to be intact. Estimated blood loss: 300 mL. Uterine hemostasis was achieved with IV Pitocin rapid infusion and uterine fundal massage. Mom plans to breast feed her daughter. She weighed 3660 grams (8 pounds 1 ounce), Apgars were 8 and 8. The family is undecided at this time as to what they are going to name her. At the close of delivery, lap counts, needle counts and instrument counts were correct and verified.
[2021-08-25] MEDS ORDERED: PRENATAL VITAMINS CHEWABLE TABLET PO SCH (09:00)
--- NOTE | 2021-08-25 13:17 | IPNPDOC ---
Progress Note Date of Service: Aug 25, 2021 Progress Note SUBJECT: Status post . She has been ambulating, voiding spontaneously without issue and tolerating regular diet. Lochia decreasing/minimal. Pain is well-controlled. Denies headache, visual changes, right upper quadrant pain, shortness breath or chest pain. OBJECTIVE: VITAL SIGNS: Within normal limits, afebrile. Alert and oriented times three. Abdomen: Fundus firm at U-2. Soft, NTTP. ASSESSMENT: Status post uncomplicated spontaneous vaginal delivery. Vitals within normal limits, afebrile, hemodynamically stable with no evidence of infection. PLAN: Discharge to home tomorrow Tylenol and Motrin for pain. Routine instructions/precautions reviewed. Routine PP visit in 6 weeks in clinic. VS, I&O, 24H, Fishbone Vital Signs/I&O Vital Signs Date Time Temp Pulse Resp B/P (MAP) Pulse Ox O2 Delivery O2 Flow Rate FiO2 08/25/21 06:00 97.8 73 18 129/60 (83) 100 Room Air I&O- Last 24 Hours up to 6 AM 08/25/21 06:00 Intake Total 1999 ml Output Total 500 ml Balance 1499 ml JOHN BETANCOURT DO Aug 25, 2021 13:17
[2021-08-25 17:16] VITALS: BP 113/63
[2021-08-26 05:35] VITALS: BP 105/68
== END 2021-08-26 10:00 | disposition home or self-care (01) | DRG 560 ==
LOC: M LDI 11:20 → M OBS 08-25 00:51
PROVIDERS: ADMIT Advanced Practice Midwife; ATTEND Advanced Practice Midwife
PROC: 10E0XZZ Delivery of Products of Conception, External Approach (ICD-10-PCS; principal; 2021-08-24)
PROC: 3E033VJ Introduction of Other Hormone into Peripheral Vein, Percutaneous Approach (ICD-10-PCS; 2021-08-24)
PROC: 3E0DXGC Introduction of Other Therapeutic Substance into Mouth and Pharynx, External Approach (ICD-10-PCS; 2021-08-24)
DX: O80 Encounter for full-term uncomplicated delivery (principal); Z88.8 Allergy status to other drugs, medicaments and biological substances; Z37.0 Single live birth; Z3A.39 39 weeks gestation of pregnancy

== ENCOUNTER → 2023-05-18 | Outpatient (REF) | payer BC ==
[~2023-05-18] MED LIST changes: +ACET325C5 PO; +CLAR10CA3 PO
== END ==
LOC: M SFHCWAGY 13:03
PROVIDERS: ATTEND Advanced Practice Midwife
DX: Z12.4 Encounter for screening for malignant neoplasm of cervix (principal)

== ENCOUNTER → 2023-07-25 | Outpatient (REF) | payer BC | LOC: M SFHCDERM 17:57 | PROVIDERS: ATTEND Physician Assistant | DX: D22.9 Melanocytic nevi, unspecified (principal) ==

== ENCOUNTER → 2024-04-29 | Outpatient (CLI) | payer BC ==
[2024-04-29 15:11] LABS: HEMATOCRIT 38.3 % (36.0-47.0); HEMOGLOBIN 12.5 g/dl (12.0-15.5); MEAN CORPUSCULAR HEMOGLOBIN 31.9 pg (27.0-33.0); MEAN CORPUSCULAR HGB CONC 32.6 g/dl (32.0-36.5); MEAN CORPUSCULAR VOLUME 97.7 fl (80.0-96.0); PLATELET COUNT, AUTOMATED 248 10^3/uL (150-450); RED BLOOD COUNT 3.92 10^6/uL (4.00-5.40); WHITE BLOOD COUNT 8.4 10^3/uL (4.0-10.0)
[2024-04-29 15:50] LABS: HIV 1&2 SCREEN NEGATIVE (NEGATIVE)
[2024-04-29 15:54] LABS: GC DNA AMPLIFICATION NEGATIVE (NEGATIVE)
[2024-04-29 15:58] LABS: HEPATITIS C VIRUS ABY INDEX 0.04 INDEX (<0.8)
== END ==
LOC: M PLALAB 10:17
PROVIDERS: ATTEND Advanced Practice Midwife
DX: Z34.91 Encounter for supervision of normal pregnancy, unspecified, first trimester (principal); Z3A.00 Weeks of gestation of pregnancy not specified

== ENCOUNTER → 2024-06-26 | Outpatient (CLI) | payer BC | LOC: M WHC 13:02 | PROVIDERS: ATTEND Advanced Practice Midwife | DX: Z34.82 Encounter for supervision of other normal pregnancy, second trimester (principal) ==

== ENCOUNTER → 2024-08-28 | Outpatient (CLI) | payer BC ==
[2024-08-28 13:40] LABS: HEMATOCRIT 36.3 % (36.0-47.0); HEMOGLOBIN 12.1 g/dl (12.0-15.5); MEAN CORPUSCULAR HEMOGLOBIN 32.9 pg (27.0-33.0); MEAN CORPUSCULAR HGB CONC 33.3 g/dl (32.0-36.5); MEAN CORPUSCULAR VOLUME 98.6 fl (80.0-96.0); PLATELET COUNT, AUTOMATED 220 10^3/uL (150-450); RED BLOOD COUNT 3.68 10^6/uL (4.00-5.40); WHITE BLOOD COUNT 11.4 10^3/uL (4.0-10.0)
[2024-08-28 13:56] LABS: GLUCOSE CHALLENGE TEST 1 HOUR 95 MG/DL (LESS THAN 140)
[2024-08-28 14:26] LABS: HIV 1&2 SCREEN NEGATIVE (NEGATIVE)
[2024-08-28 14:34] LABS: HEPATITIS C VIRUS ABY INDEX 0.06 INDEX (<0.8)
[2024-08-28 14:52] LABS: GC DNA AMPLIFICATION NEGATIVE (NEGATIVE)
== END ==
LOC: M PLALAB 10:44
PROVIDERS: ATTEND Advanced Practice Midwife
DX: Z34.82 Encounter for supervision of other normal pregnancy, second trimester (principal)

== ENCOUNTER → 2024-10-17 | Outpatient (REF) | payer BC | LOC: M SFHCWAGY 12:49 | PROVIDERS: ATTEND Advanced Practice Midwife | DX: Z34.83 Encounter for supervision of other normal pregnancy, third trimester (principal) ==

== ENCOUNTER 2024-11-06 11:13 | Inpatient (IN) | payer BC ==
[~2024-11-06] VITALS: Ht 170.2 cm; Wt 81.6 kg
[2024-11-06] VITALS (18 sets, daily range): BP systolic 106–130; BP diastolic 57–71
[2024-11-06] MEDS ORDERED: PANT20TA6 PO (11:37)
[2024-11-06] MEDS ORDERED: HOME MED LIST COMPLETE! XX SCH (11:40)
[2024-11-06] MEDS ORDERED: OXYTOCIN DRIP 30 UNITS in IV 1 EA IV PRN (11:55)
[2024-11-06] MEDS ORDERED: OXYTOCIN INJ 10UNITS/ML 1ML VIAL IM PRN (11:55)
[2024-11-06] MEDS ORDERED: CARBOPROST TROMETHAMINE 250 MCG/ML AMP IM PRN (11:55)
[2024-11-06] MEDS ORDERED: METHYLERGONOVINE MALEATE 0.2MG/ML 1ML VIAL IM PRN (11:55)
[2024-11-06] MEDS ORDERED: LIDOCAINE 1% MDV 20ML VIAL INFIL PRN (11:55)
[2024-11-06] MEDS ORDERED: TRANEXAMIC ACID INJection 1,000 MG in NS 100 ML IV PRN (11:55)
[2024-11-06] MEDS: miSOPROStol 50MCG 1/2 TABLET PO ONE (12:19)
[2024-11-06 12:35] LABS: HEMATOCRIT 33.4 % (36.0-47.0); HEMOGLOBIN 11.2 g/dl (12.0-15.5); MEAN CORPUSCULAR HEMOGLOBIN 31.1 pg (27.0-33.0); MEAN CORPUSCULAR HGB CONC 33.5 g/dl (32.0-36.5); MEAN CORPUSCULAR VOLUME 92.8 fl (80.0-96.0); PLATELET COUNT, AUTOMATED 203 10^3/uL (150-450); WHITE BLOOD COUNT 9.9 10^3/uL (4.0-10.0)
[2024-11-06 13:24] LABS: HIV 1&2 SCREEN NEGATIVE (NEGATIVE)
[2024-11-06 13:32] LABS: HEPATITIS C VIRUS ABY INDEX 0.04 INDEX (<0.8)
[2024-11-06] MEDS: OXYTOCIN DRIP 30 UNITS in IV 1 EA IV SCH (16:25)
[2024-11-06] MEDS: LR 1,000 ML IV SCH (16:26)
[2024-11-07] MEDS ORDERED: DIBUCAINE 1% OINTMENT 30GM TOP PRN (00:20)
[2024-11-07] MEDS ORDERED: RHOGAM 300MCG (1500IU) INJ IM SCH (00:20)
[2024-11-07] MEDS ORDERED: METHYLERGONOVINE MALEATE 0.2 MG TAB PO PRN (00:20)
[2024-11-07] MEDS ORDERED: ACETAMINOPHEN 325 MG TAB PO PRN (00:20)
[2024-11-07 00:23] VITALS: BP 111/63
[2024-11-07] MEDS: IBUPROFEN 800 MG TAB PO PRN (00:44)
[2024-11-07 00:46] VITALS: BP 101/59
[2024-11-07 01:08] VITALS: BP 103/52
[2024-11-07 01:40] VITALS: BP 99/57; O2SAT 97
[2024-11-07] MEDS: ACETAMINOPHEN 500 MG TAB PO PRN (04:59)
[2024-11-07 05:05] VITALS: BP 90/60; O2SAT 97
[2024-11-07] MEDS: PRENATAL VITAMINS CHEWABLE TABLET PO SCH (07:49)
[2024-11-07 18:00] VITALS: BP 102/65; O2SAT 97
[2024-11-08] MEDS: DOCUSATE SODIUM 100MG CAPSULE PO PRN (00:13)
[2024-11-08] MEDS: IBUPROFEN 600MG TAB PO PRN (00:13)
[2024-11-08 06:00] VITALS: BP 111/69; O2SAT 97
[2024-11-09] MEDS ORDERED: MEASLES,MUMPS,RUBELLA VACCINE INJ (MMR-II) SC.IMMUN ONE (09:00)
== END 2024-11-08 12:42 | disposition home or self-care (01) | DRG 560 ==
LOC: M LDI 11:13 → M OBS 11-07 01:38
PROVIDERS: ADMIT Advanced Practice Midwife; ATTEND Advanced Practice Midwife
PROC: 3E0P7GC Introduction of Other Therapeutic Substance into Female Reproductive, Via Natural or Artificial Opening (ICD-10-PCS; 2024-11-06)
PROC: 3E033VJ Introduction of Other Hormone into Peripheral Vein, Percutaneous Approach (ICD-10-PCS; 2024-11-06)
PROC: 10E0XZZ Delivery of Products of Conception, External Approach (ICD-10-PCS; principal; 2024-11-07)
DX: O80 Encounter for full-term uncomplicated delivery (principal); Z88.2 Allergy status to sulfonamides; Z37.0 Single live birth; Z3A.39 39 weeks gestation of pregnancy; Z88.8 Allergy status to other drugs, medicaments and biological substances

== ENCOUNTER → 2025-07-01 | Outpatient (REF) | payer BC ==
[~2025-07-01] MED LIST changes: +PANT20TA6 PO
[2025-07-03 15:27] LABS: HPV APTIMA Not Detected (Not Detected)
== END ==
LOC: M SFHCWAGY 16:00
PROVIDERS: ATTEND Physician Assistant
DX: Z12.4 Encounter for screening for malignant neoplasm of cervix (principal); Z77.9 Other contact with and (suspected) exposures hazardous to health
CPT/HCPCS: 87624; G0123

== ENCOUNTER → 2025-07-21 | Outpatient (REF) | payer BC | LOC: M LAB REF 11:52 | PROVIDERS: ATTEND Physician Assistant | DX: R30.0 Dysuria (principal) ==